=== PATIENT | male | born 1985 | race Caucasian/White ===

== ENCOUNTER 2017-01-28 14:07 | Emergency (ER) | payer OTHER ==
[~2017-01-28] VITALS: Ht 175.3 cm; Wt 90.5 kg
[2017-01-28 17:03] LABS: HEMATOCRIT 42.1 % (38.0-50.0); MCH 31.7 PG (29.0-34.0); MCHC 34.4 G/DL (30.0-36.0); MCV 92.1 FL (86-99); MEAN PLAT.VOLUME 9.5 uM^3 (9.0-12.4); PLATELET COUNT 265 K/uL (156-360); RBC DIS.WIDTH-CV 12.6 % (11.8-14.6); RBC DIS.WIDTH-SD 42.2 % (39-53); RED BLOOD COUNT 4.57 M/uL (4.00-5.50); WHITE BLOOD COUNT 9.5 K/uL (4.1-10.2)
[2017-01-28 17:12] LABS: CHLORIDE 110 mEq/L (99-109); POTASSIUM 4.9 mEq/L (3.7-5.4); SODIUM 140 mEq/L (136-147)
[2017-01-28 17:14] LABS: GLUCOSE 99 mg/dL (70-99)
[2017-01-28 17:15] LABS: ANION GAP 10 MEQ/L (2-14)
[2017-01-28 17:16] LABS: TOTAL BILIRUBIN 0.4 mg/dL (0.0-1.0)
[2017-01-28 17:17] LABS: ALKALINE PHOSPHATASE 91 IU/L (3-129)
[2017-01-28 17:19] LABS: UREA NITROGEN (BUN) 13 mg/dL (9-23)
[2017-01-28 17:21] LABS: GFR ESTIMATE (CALCULATED) > 59 mL/min/
[2017-01-28 19:15] LABS: ADD MIUA? NO; BILIRUBIN NEGATIVE; BLOOD NEGATIVE; COLOR YELLOW ((YELLOW)); GLUCOSE (STRIP) NEGATIVE; KETONES NEGATIVE; LEUKOCYTES NEGATIVE; NITRITE NEGATIVE; PROTEIN (STRIP) NEGATIVE; SPECIFIC GRAVITY 1.013 (1.000-1.030); UCUL ADDED? NO; UROBILINOGEN 0.2 MG/DL (0.2-1.0)
[2017-01-28] MEDS ORDERED: LORTAB 10-3251 EACH PO (20:23)
[2017-01-28] MEDS ORDERED: NAPROSYN500 MG PO (20:23)
[2017-01-28 21:08] VITALS: BP 143/86
== END 2017-01-28 21:11 | disposition home or self-care (01) ==
LOC: EME 14:07
PROVIDERS: Nurse Practitioner Family
DX: K40.90 Unilateral inguinal hernia, without obstruction or gangrene, not specified as recurrent (principal); N50.812 Left testicular pain; Y99.0 Civilian activity done for income or pay; X50.0XXA Overexertion from strenuous movement or load, initial encounter; F17.200 Nicotine dependence, unspecified, uncomplicated
CPT/HCPCS: 74177; 76870; 80053; 81003; 85027; 99281; 99284; J3010; J7030